=== PATIENT | male | born 1965 | race Caucasian/White ===

== ENCOUNTER → 2017-09-15 | Outpatient (CLI) | payer SELFPAY | END | disposition home or self-care (01) | LOC: RAD 10:53 | DX: R91.8 Other nonspecific abnormal finding of lung field (principal); R05 Cough | CPT/HCPCS: 71046 ==

== ENCOUNTER → 2017-10-12 | Outpatient (CLI) | payer SELFPAY | END | disposition home or self-care (01) | LOC: EKG 08:24 | DX: I51.7 Cardiomegaly (principal); I51.9 Heart disease, unspecified; I05.1 Rheumatic mitral insufficiency; I07.1 Rheumatic tricuspid insufficiency; I27.20 Pulmonary hypertension, unspecified; R94.31 Abnormal electrocardiogram [ECG] [EKG] | CPT/HCPCS: 93306 ==